=== PATIENT | male | born 1970 ===

== ENCOUNTER 2018-10-29 16:03 | Emergency (ER) | payer SELFPAY ==
[2018-10-29 16:21] VITALS: TEMP 98; O2SAT 98
--- NOTE | 2018-10-29 16:46 | C.PDOC ---
History Of Present Illness 47 year old with PMHx of hypertension and thyroidectomy presents to the ED for evaluation of onset abdominal pain that started yesterday. The patient reports the pain is reproduced when moving and bending over but no pain with no mo vement. Pain is described as sore. He admits to taking laxatives today attempting to alleviate the pain with no improvement, multiple bowel movements today. The patient states normal bowel movements 1 day ago. Denies fever, chills, heavy lifting, testicular pain, urinary symptoms, nausea, vomiting, and any other associated symptoms. Time Seen by Provider: 10/29/18 16:27 Chief Complaint (Nursing): Abdominal Pain History Per: Patient History/Exam Limitations: no limitations Onset/Duration Of Symptoms: Hrs Current Symptoms Are (Timing): Still Present Location Of Pain/Discomfort: Suprapubic Associated Symptoms: denies: Fever, Chills, Nausea, Vomiting Past Medical History Reviewed: Historical Data, Nursing Documentation, Vital Signs Vital Signs: Last Vital Signs Temp 98 F 10/29/18 16:09 Pulse 87 10/29/18 16:09 Resp 18 10/29/18 16:09 BP 136/79 10/29/18 16:09 Pulse Ox 98 10/29/18 16:09 - Medical History PMH: Hypothyroidism Family History: States: Unknown Family Hx - Social History Hx Alcohol Use: No Hx Substance Use: No Review Of Systems Except As Marked, All Systems Reviewed And Found Negative. Constitutional: Negative for: Fever, Chills Gastrointestinal: Positive for: Abdominal Pain (lower quadrant tenderness. ). Negative for: Nausea, Vomiting Genitourinary: Negative for: Dysuria, Frequency, Incontinence, Other ((-) testicular pain. ) Physical Exam - Physical Exam Appears: Well, Non-toxic, No Acute Distress Skin: Normal Color, Warm, Dry Head: Atraumatic, Normacephalic Eye(s): bilateral: Normal Inspection, EOMI Nose: Normal Oral Mucosa: Moist Neck: Normal ROM, Supple Chest: Symmetrical Cardiovascular: Rhythm Regular Respiratory: Normal Breath Sounds (clear to auscultation.), No Accessory Muscle Use, No Rales, No Rhonchi, No Wheezing, Other (speaking in full sentences. ) Gastrointestinal/Abdominal: Soft, Tenderness (lower quadrant. ) Back: No CVA Tenderness, No Vertebral Tenderness Extremity: Normal ROM (x4) Neurological/Psych: Oriented x3, Normal Speech, Normal Cognition, No Other (no focal deficits.) ED Course And Treatment - Laboratory Results Result Diagrams: 10/29/18 17:02 10/29/18 17:02 O2 Sat by Pulse Oximetry: 98 (RA) Pulse Ox Interpretation: Normal Progress Note: Initial plan: Blood sent. Toradol. CT ABD & Pelvis IV Contrast. Case endorsed to Dr Rowe pending CT results and re-evaluation. Disposition - Disposition Disposition Time: 19:25 Condition: STABLE Forms: [employer] ([place]) - Clinical Impression Clinical Impression: Abdominal pain - PA / [facility] / Resident Statement MD/DO has reviewed & agrees with the documentation as recorded. - Scribe Statement The provider has reviewed the documentation as recorded by the Scribe (Mary Baires) All medical record entries made by the Scribe were at my direction and personally dictated by me. I have reviewed the chart and agree that the record accurately reflects my personal performance of the history, physical exam, medical decision making, and the department course for this patient. I have also personally directed, reviewed, and agree with the discharge instructions and disposition.
[2018-10-29 17:05] LABS: BASO % 0.4 % (0.0-2.0); EOS # 0.1 K/uL (0.0-0.7); EOS % 0.9 % (0.0-4.0); HEMOGLOBIN 14.4 g/dL (12.0-18.0); LYMPH # 1.6 K/uL (1.0-4.3); LYMPH % 15.7 % (20.0-40.0); MEAN CELL VOLUME 89.3 fL (80.0-94.0); MEAN CORPUSCULAR HEMOGLOBIN 30.5 pg (27.0-31.0); MEAN CORPUSCULAR HGB CONC 34.2 g/dL (33.0-37.0); MEAN PLATELET VOLUME 6.9 fL (7.2-11.7); MONO # 0.8 K/uL (0.0-0.8); MONO % 8.1 % (0.0-10.0); NEUT # 7.8 K/uL (1.8-7.0); NEUT % 74.9 % (50.0-75.0); RBC 4.71 Mil/uL (4.40-5.90); RED CELL DISTRIBUTION WIDTH 12.9 % (11.5-14.5); WHITE BLOOD COUNT 10.4 K/uL (4.8-10.8)
[2018-10-29 17:12] LABS: URINE BILIRUBIN NEGATIVE (NEGATIVE); URINE BLOOD NEGATIVE (NEGATIVE); URINE CLARITY Clear (Clear); URINE COLOR Yellow (YELLOW); URINE GLUCOSE (UA) NORMAL (Normal); URINE LEUKOCYTE ESTERASE NEG Leu/uL (Negative); URINE PROTEIN NEGATIVE (NEGATIVE); URINE UROBILINOGEN NORMAL mg/dL (0.2-1.0)
[2018-10-29 17:18] LABS: ALB/GLOB RATIO 1.4 (1.0-2.1); ALBUMIN 4.4 g/dL (3.5-5.0); ALT/SGPT 38 U/L (21-72); AST/SGOT 30 U/L (17-59); BLOOD UREA NITROGEN 13 mg/dL (9-20); CALCIUM 8.4 mg/dl (8.6-10.4); GFR NON-AFRICAN AMERICAN > 60; LIPASE 111 U/L (23-300)
[2018-10-29] MEDS ORDERED: Iodixanol 320 MG/ML 100 ML BOTTLE IV ONE (17:34)
[2018-10-29 20:18] VITALS: BP 125/85; PULSE 74; RESP 16
--- NOTE | 2018-10-30 13:59 | CT ---
Date of service: 10/29/2018 PROCEDURE: CT Abdomen and Pelvis with contrast HISTORY: abd pain COMPARISON: None. TECHNIQUE: Following the intravenous administration of iodinated contrast material, a CT examination of the abdomen and pelvis was performed from the domes of the diaphragms to the symphysis pubis with reformatted datasets provided in axial, sagittal and coronal planes. Oral contrast was not administered as per referring physician request. Contrast dose: Visipaque 320, 100 cc Radiation dose: Total exam DLP = 750.8 mGy-cm. This CT exam was performed using one or more of the following dose reduction techniques: Automated exposure control, adjustment of the mA and/or kV according to patient size, and/or use of iterative reconstruction technique. FINDINGS: LOWER THORAX: Trace ground-glass opacity in the bilateral bases all the which is nonspecific. No pleural effusion or gross consolidation. LIVER: Diminished attenuation seen throughout the liver compatible hepatic steatosis. No intrahepatic biliary dilatation or discrete liver mass evident. GALLBLADDER AND BILE DUCTS: Unremarkable. PANCREAS: Unremarkable. No gross lesion or ductal dilatation. SPLEEN: Unremarkable. ADRENALS: Unremarkable. No mass. KIDNEYS AND URETERS: Unremarkable. No hydronephrosis. No solid mass. VASCULATURE: Unremarkable. No aortic aneurysm. No aortic atherosclerotic calcification or mural plaque present. BOWEL: No bowel obstruction appreciated. Lack of oral contrast limits the evaluation of the gastrointestinal tract. Nevertheless, pericolic reactive changes are present affecting the mid sigmoid colon with mild sigmoid diverticulosis affecting the distal descending colon and entire sigmoid segment. No extraluminal gas collection or free air is identified associated in this segment of likely diverticulitis affected colon. Other infectious or inflammatory causes are not excluded and further clinical correlation is advised. APPENDIX: Normal appendix. PERITONEUM: Perineum exclusive of the sigmoid colon is unremarkable. LYMPH NODES: Unremarkable. No enlarged lymph nodes. BLADDER: Sympathetic cystitis felt to present at the urinary bladder anteriorly. REPRODUCTIVE: Unremarkable. BONES: No acute fracture. OTHER FINDINGS: None. IMPRESSION: Findings most compatible with sigmoid diverticulitis without abscess or free intra peritoneal gas collection evident. Bowel is otherwise unremarkable though limited evaluation due to lack of oral contrast. Clinically correlate further. Please see discussion above. Concordant preliminary report from [employer], 10/29/2018 7:44 p.m..
== END 2018-10-29 20:17 | disposition home or self-care (01) ==
LOC: C.ER 16:03
DX: R10.9 Unspecified abdominal pain (principal); I10 Essential (primary) hypertension; E03.9 Hypothyroidism, unspecified
CPT/HCPCS: 74177; 80053; 81001; 83690; 85025; 96374; 99284; J1885; Q9967

== ENCOUNTER 2018-12-06 09:29 | Outpatient (CLI) | payer SELFPAY | END 2018-12-06 09:30 | disposition home or self-care (01) | LOC: C.LAB 09:29 | DX: E03.9 Hypothyroidism, unspecified (principal) ==